=== PATIENT | male | born 1980 | race Caucasian/White ===

== ENCOUNTER 2018-02-09 13:14 | Emergency (ER) | payer OTHER ==
--- NOTE | 2018-02-09 13:41 | ERPHSYRPT ---
- History of Present Illness Time Seen by Provider: 02/09/18 13:29 Source: patient, EMS Exam Limitations: no limitations Patient Subjective Stated Complaint: Pt states "I was working with [employer]ers and I remember them wanting to take my blood pressure then the next thing I remember I am in an ambulance.". Medics states "He was initially in and out of concsiousness when I got there and his pupils were pinpoint. I gave 2 mg narcan and he immediately woke up and was very angry and combative." Triage Nursing Assessment: Pt alert and oriented X 3, skin pwd. Pt yawning frequently, able to speak in clear full sentences. PT has some sinus congestion. No apparent respiratory distress. PT has equal strength in all extremeties bilat. Physician History: The patient is a 38-year-old male brought in by ambulance from the [facility] system. 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 The ambulance was called because the patient's blood pressure was approximately 280/130 and it was believed he was in a crisis. The patient states that he was slightly dizzy at that time. When the ambulance arrived EMS tells me that he was going "in and out of consciousness". His blood glucose by EMS was 86. EMS states his pupils were pinpoint so there next item to do per protocol was to give 2 mg of Narcan. EMS states that he "woke up immediately". The patient states he did not know that he was given Narcan. The patient freely admits that he takes methadone and oxycodone for bilateral leg pain. The patient's past medical history is significant for hypertension, chronic leg pain, "thick blood", and cholecystectomy. Pt does not smoke or drink alcohol. Timing/Duration: today Severity: moderate Modifying Factors: Improves With: nothing Associated Symptoms: other (dizziness) Allergies/Adverse Reactions: No Known Drug Allergies Allergy (Unverified 02/09/18 13:24) Home Medications: ALPRAZolam [Alprazolam] 1 tab PO DAILY 02/09/18 [History] Carvedilol 25 mg PO DAILY 02/09/18 [History] Hydrochlorothiazide 25 mg [hydroDIURIL 25 MG] 25 mg PO DAILY 02/09/18 [ History] Methadone HCl 5 mg PO DAILY 02/09/18 [History] Oxycodone HCl 5 mg PO DAILY 02/09/18 [History] Rivaroxaban [Xarelto] 20 mg PO DAILY 02/09/18 [History] predniSONE [Prednisone] 1 tab PO DAILY 02/09/18 [History] Hx Tetanus, Diphtheria Vaccination/Date Given: No Hx Influenza Vaccination/Date Given: Yes Hx Pneumococcal Vaccination/Date Given: No Immunizations Up to Date: Yes - Review of Systems Constitutional: No Fever, No Chills Eyes: No Symptoms Ears, Nose, & Throat: No Symptoms Respiratory: No Cough, No Dyspnea Cardiac: No Chest Pain, No Edema, No Syncope Abdominal/Gastrointestinal: No Abdominal Pain, No Nausea, No Vomiting, No Diarrhea Genitourinary Symptoms: No Dysuria Musculoskeletal: No Back Pain, No Neck Pain Skin: No Rash Neurological: Dizziness Psychological: No Symptoms Endocrine: No Symptoms Hematologic/Lymphatic: No Symptoms Immunological/Allergic: No Symptoms All Other Systems: Reviewed and Negative - Past Medical History Pertinent Past Medical History: Yes Neurological History: No Pertinent History ENT History: No Pertinent History Cardiac History: Hypertension Respiratory History: No Pertinent History Endocrine Medical History: No Pertinent History Musculoskeletal History: No Pertinent History GI Medical History: No Pertinent History History: No Pertinent History Psycho-Social History: No Pertinent History Male Reproductive Disorders: No Pertinent History Other Medical History: oriental orthodox satish syndrome - Past Surgical History Past Surgical History: Yes Neuro Surgical History: No Pertinent History Cardiac: No Pertinent History Respiratory: No Pertinent History Gastrointestinal: Cholecystectomy Genitourinary: No Pertinent History Musculoskeletal: No Pertinent History Male Surgical History: No Pertinent History - Social History Smoking Status: Former smoker Exposure to second hand smoke: Yes Drug Use: none Patient Lives Alone: No - Nursing Vital Signs Nursing Vital Signs: Initial Vital Signs Temperature 98.0 F 02/09/18 13:15 Pulse Rate 89 02/09/18 13:15 Respiratory Rate 18 02/09/18 13:15 Blood Pressure 184/127 02/09/18 13:15 O2 Sat by Pulse Oximetry 98 02/09/18 13:15 Pain Scale Pain Intensity 0 - Physical Exam General Appearance: lethargy (mildly lethargic upon arrival.) Eye Exam: PERRL/EOMI Ears, Nose, Throat Exam: normal ENT inspection, TMs normal, pharynx normal, moist mucous membranes Neck Exam: normal inspection, non-tender, supple, full range of motion Respiratory Exam: normal breath sounds, lungs clear, No respiratory distress Cardiovascular Exam: regular rate/rhythm, normal heart sounds, normal peripheral pulses Gastrointestinal/Abdomen Exam: soft, normal bowel sounds, No tenderness, No mass Rectal Exam: not done Back Exam: normal inspection, normal range of motion, No CVA tenderness, No vertebral tenderness Extremity Exam: normal inspection, normal range of motion, pelvis stable Neurologic Exam: alert, oriented x 3, cooperative, normal mood/affect, nml cerebellar function, nml station & gait, sensation nml, No motor deficits Skin Exam: normal color, warm, dry, No rash Lymphatic Exam: No adenopathy SpO2 Interpretation: normal SpO2: 98 Oxygen Delivery: Room Air - Course EKG Interpreted by Me: RATE, Sinus Rhythm, NORMAL AXIS, NORMAL INTERVALS, NORMAL QRS, NORMAL ST-T - Radiology Exams Chest X-ray Interpretation: Reviewed by me, Teleradiologist Report (per Dr Mayfield), Negative - CT Exams Head CT Interpretation: Negative, Tele-radiologist Report (per Dr Mayfield), No/ Intracranial Hemorrhag Ordered Tests: Active Orders 24 hr Category Date Time Status Clean Catch Urine Specimen STAT Care 02/09/18 13:49 Active EKG-ER Only STAT Care 02/09/18 13:49 Active IV Insertion STAT Care 02/09/18 13:49 Active CHEST 2 VIEWS (PA AND LAT) Stat Exams 02/09/18 13:49 Completed HEAD WITHOUT CONTRAST [CT] Stat Exams 02/09/18 13:50 Completed CBC W DIFF Stat Lab 02/09/18 14:05 Completed CMP Stat Lab 02/09/18 14:05 Completed CULTURE,URINE Stat Lab 02/09/18 14:25 Received ETHYL ALCOHOL Stat Lab 02/09/18 14:05 Completed LIPASE Stat Lab 02/09/18 14:05 Completed Lactic Acid Stat Lab 02/09/18 14:20 Completed Manual Differential NC Stat Lab 02/09/18 14:05 Completed TROPONIN Q3H Lab 02/09/18 14:05 Completed TROPONIN Q3H Lab 02/09/18 17:00 Ordered TROPONIN Q3H Lab 02/09/18 20:00 Ordered TROPONIN Q3H Lab 02/09/18 23:00 Ordered TROPONIN Q3H Lab 02/10/18 02:00 Ordered UA W/ MICROSCOPIC Stat Lab 02/09/18 14:25 Completed Urine Triage Profile Stat Lab 02/09/18 14:11 Completed Medication Summary Discontinued Medications Generic Name Dose Route Start Last Admin Trade Name Roseanne PRN Reason Stop Dose Admin Sodium Chloride 1,000 mls @ 999 mls/hr 02/09/18 13:49 02/09/18 14:05 Sodium Chloride 0.9% 1000 Ml IV 02/09/18 14:49 999 mls/hr .Q1H1M STA Administration Sodium Chloride Confirm 02/09/18 14:01 Sodium Chloride 0.9% 1000 Ml Administered 02/09/18 14:02 Dose 1,000 mls @ ud .ROUTE .STK-MED ONE Labetalol HCl 20 mg 02/09/18 13:51 02/09/18 14:05 Trandate 20 Mg/5 Ml Syringe IV 02/09/18 13:52 20 mg STAT ONE Administration Labetalol HCl Confirm 02/09/18 14:01 Trandate 100 Mg/20 Ml Mdv For Drip Administered 02/09/18 14:02 Dose 100 mg IV .STK-MED ONE Lab/Rad Data: Laboratory Result Diagrams 02/09/18 14:05 02/09/18 14:05 Laboratory Results 02/09/18 02/09/18 02/09/18 Range/Units 14:25 14:20 14:11 WBC (4.0-10.5) K/mm3 RBC (4.1-5.6) M/mm3 Hgb (12.5-18.0) gm/dl Hct (42-50) % MCV (78-100) fl MCH (26-32) pg MCHC (32-36) g/dl RDW (11.5-14.0) % Plt Count (150-450) K/mm3 MPV (6-9.5) fl Segmented Neutrophils (36.-66.) % Band Neutrophils (0.0-2.0) % Lymphocytes (Manual) (24-44) % Monocytes (Manual) (0.0-12.0) % Eosinophils (Manual) (0.00-3.0) % Platelet Estimate (NORMAL) RBC Morphology Basophilic Stippling Sodium (137-145) mmol/L Potassium (3.5-5.1) mmol/L Chloride (98-107) mmol/L Carbon Dioxide (22-30) mmol/L Anion Gap (5-15) MEQ/L BUN (9-20) mg/dL Creatinine (0.66-1.25) mg/dL Estimated GFR ML/MIN Glucose (74-106) mg/dL Lactic Acid 1.6 (0.4-2.0) Calcium (8.4-10.2) mg/dL Total Bilirubin (0.2-1.3) mg/dL AST (17-59) U/L ALT (0-50) U/L Alkaline Phosphatase (38-126) U/L Troponin I (0.000-0.034) ng/mL Serum Total Protein (6.3-8.2) g/dL Albumin (3.5-5.0) g/dL Lipase (23-300) U/L Ur Collection Type CLEAN CATCH Urine Color YELLOW (YELLOW) Urine Appearance CLEAR (CLEAR) Urine pH 6.0 (5-6) Ur Specific [place] 1.020 (1.005-1.025) Urine Protein 30 (Negative) Urine Ketones NEGATIVE (NEGATIVE) Urine Blood 50 (0-5) Luan/ul Urine Nitrite NEGATIVE (NEGATIVE) Urine Bilirubin NEGATIVE (NEGATIVE) Urine Urobilinogen NORMAL (0-1) mg/dL Ur Leukocyte Esterase NEGATIVE (NEGATIVE) Urine Microscopic RBC 2-5 (0-2) /HPF Urine Microscopic WBC 0-2 (0-5) /HPF Ur Epithelial Cells RARE (FEW) /HPF Urine Bacteria FEW (NEGATIVE) /HPF Urine Culture Reflexed YES (NO) Urine Glucose NEGATIVE (NEGATIVE) mg/dL Urine Opiates Level POSITIVE (NEGATIVE) Ur Methadone POSITIVE (NEGATIVE) Urine Barbiturates NEGATIVE (NEGATIVE) Ur Phencyclidine (PCP) NEGATIVE (NEGATIVE) Urine Amphetamine NEGATIVE (NEGATIVE) U Benzodiazepine Level POSITIVE (NEGATIVE) Urine Cocaine NEGATIVE (NEGATIVE) Urine Marijuana (THC) NEGATIVE (NEGATIVE) Ethyl Alcohol (0-10) mg/dL Specimen Received 02/09/18 [id number] 02/09/18 02/09/18 02/09/18 Range/Units 14:05 14:05 14:05 WBC (4.0-10.5) K/mm3 RBC (4.1-5.6) M/mm3 Hgb (12.5-18.0) gm/dl Hct (42-50) % MCV (78-100) fl MCH (26-32) pg MCHC (32-36) g/dl RDW (11.5-14.0) % Plt Count (150-450) K/mm3 MPV (6-9.5) fl Segmented Neutrophils (36.-66.) % Band Neutrophils (0.0-2.0) % Lymphocytes (Manual) (24-44) % Monocytes (Manual) (0.0-12.0) % Eosinophils (Manual) (0.00-3.0) % Platelet Estimate (NORMAL) RBC Morphology Basophilic Stippling Sodium 144 (137-145) mmol/L Potassium 4.1 (3.5-5.1) mmol/L Chloride 106 (98-107) mmol/L Carbon Dioxide 27 (22-30) mmol/L Anion Gap 14.7 (5-15) MEQ/L BUN 16 (9-20) mg/dL Creatinine 1.16 (0.66-1.25) mg/dL Estimated GFR > 60.0 ML/MIN Glucose 117 H (74-106) mg/dL Lactic Acid (0.4-2.0) Calcium 9.0 (8.4-10.2) mg/dL Total Bilirubin 0.30 (0.2-1.3) mg/dL AST 44 (17-59) U/L ALT 32 (0-50) U/L Alkaline Phosphatase 86 (38-126) U/L Troponin I 0.024 (0.000-0.034) ng/mL Serum Total Protein 6.9 (6.3-8.2) g/dL Albumin 4.1 (3.5-5.0) g/dL Lipase 68 (23-300) U/L Ur Collection Type Urine Color (YELLOW) Urine Appearance (CLEAR) Urine pH (5-6) Ur Specific [place] (1.005-1.025) Urine Protein (Negative) Urine Ketones (NEGATIVE) Urine Blood (0-5) Luan/ul Urine Nitrite (NEGATIVE) Urine Bilirubin (NEGATIVE) Urine Urobilinogen (0-1) mg/dL Ur Leukocyte Esterase (NEGATIVE) Urine Microscopic RBC (0-2) /HPF Urine Microscopic WBC (0-5) /HPF Ur Epithelial Cells (FEW) /HPF Urine Bacteria (NEGATIVE) /HPF Urine Culture Reflexed (NO) Urine Glucose (NEGATIVE) mg/dL Urine Opiates Level (NEGATIVE) Ur Methadone (NEGATIVE) Urine Barbiturates (NEGATIVE) Ur Phencyclidine (PCP) (NEGATIVE) Urine Amphetamine (NEGATIVE) U Benzodiazepine Level (NEGATIVE) Urine Cocaine (NEGATIVE) Urine Marijuana (THC) (NEGATIVE) Ethyl Alcohol < 10 (0-10) mg/dL Specimen Received 02/09/18 Range/Units 14:05 WBC 7.9 (4.0-10.5) K/mm3 RBC 4.51 (4.1-5.6) M/mm3 Hgb 13.1 (12.5-18.0) gm/dl Hct 40.6 L (42-50) % MCV 90.0 (78-100) fl MCH 29.0 (26-32) pg MCHC 32.3 (32-36) g/dl RDW 13.9 (11.5-14.0) % Plt Count 210 (150-450) K/mm3 MPV 9.7 H (6-9.5) fl Segmented Neutrophils 48 (36.-66.) % Band Neutrophils 1 (0.0-2.0) % Lymphocytes (Manual) 45 H (24-44) % Monocytes (Manual) 4 (0.0-12.0) % Eosinophils (Manual) 2 (0.00-3.0) % Platelet Estimate NORMAL (NORMAL) RBC Morphology ABNORMAL Basophilic Stippling 1+ Sodium (137-145) mmol/L Potassium (3.5-5.1) mmol/L Chloride (98-107) mmol/L Carbon Dioxide (22-30) mmol/L Anion Gap (5-15) MEQ/L BUN (9-20) mg/dL Creatinine (0.66-1.25) mg/dL Estimated GFR ML/MIN Glucose (74-106) mg/dL Lactic Acid (0.4-2.0) Calcium (8.4-10.2) mg/dL Total Bilirubin (0.2-1.3) mg/dL AST (17-59) U/L ALT (0-50) U/L Alkaline Phosphatase (38-126) U/L Troponin I (0.000-0.034) ng/mL Serum Total Protein (6.3-8.2) g/dL Albumin (3.5-5.0) g/dL Lipase (23-300) U/L Ur Collection Type Urine Color (YELLOW) Urine Appearance (CLEAR) Urine pH (5-6) Ur Specific [place] (1.005-1.025) Urine Protein (Negative) Urine Ketones (NEGATIVE) Urine Blood (0-5) Luan/ul Urine Nitrite (NEGATIVE) Urine Bilirubin (NEGATIVE) Urine Urobilinogen (0-1) mg/dL Ur Leukocyte Esterase (NEGATIVE) Urine Microscopic RBC (0-2) /HPF Urine Microscopic WBC (0-5) /HPF Ur Epithelial Cells (FEW) /HPF Urine Bacteria (NEGATIVE) /HPF Urine Culture Reflexed (NO) Urine Glucose (NEGATIVE) mg/dL Urine Opiates Level (NEGATIVE) Ur Methadone (NEGATIVE) Urine Barbiturates (NEGATIVE) Ur Phencyclidine (PCP) (NEGATIVE) Urine Amphetamine (NEGATIVE) U Benzodiazepine Level (NEGATIVE) Urine Cocaine (NEGATIVE) Urine Marijuana (THC) (NEGATIVE) Ethyl Alcohol (0-10) mg/dL Specimen Received - Progress Progress: improved Progress Note: 02/09/18 14:57 BP is now 140/93 after labetalol 20 mg IV. Counseled pt/family regarding: lab results, diagnosis, need for follow-up, rad results - Departure Time of Disposition: 16:12 Departure Disposition: Home Clinical Impression: HTN (hypertension) Condition: Stable Critical Care Time: No Additional Instructions: You had an episode of significantly elevated blood pressure today. You were given labetalol 20 mg and fluids by IV in the ER. Your blood pressure is now normal. Continued to stay well hydrated. Continue with your blood pressure medicines as prescribed. Your released to return to work without restrictions at this time. Follow-up next week with your primary medical doctor.
[2018-02-09] MEDS ORDERED: Sodium Chloride 0.9% 1000 ML 1,000 ML IV STA (13:49)
[2018-02-09] MEDS ORDERED: TRANDATE 20 MG/5 ML SYRINGE IV ONE (13:51)
[2018-02-09] MEDS ORDERED: Sodium Chloride 0.9% 1000 ML 1,000 ML ONE (14:01)
[2018-02-09] MEDS ORDERED: TRANDATE 100 MG/20 ML MDV FOR DRIP IV ONE (14:01)
[2018-02-09 14:07] LABS: Hematocrit 40.6 % (42-50); Hemoglobin 13.1 gm/dl (12.5-18.0); Mean Corpuscular Hgb Concent. 32.3 g/dl (32-36); Mean Platelet Volume 9.7 fl (6-9.5); Platelet Count 210 K/mm3 (150-450); Red Blood Count 4.51 M/mm3 (4.1-5.6); Red Cell Distribution Width 13.9 % (11.5-14.0); White Blood Count 7.9 K/mm3 (4.0-10.5)
[2018-02-09 14:30] LABS: ALBUMIN 4.1 g/dL (3.5-5.0); ALKALINE PHOSPHATASE 86 U/L (38-126); ANION GAP 14.7 MEQ/L (5-15); BLOOD UREA NITROGEN 16 mg/dL (9-20); CHLORIDE 106 mmol/L (98-107); Carbon Dioxide 27 mmol/L (22-30); Creatinine 1 1.16 mg/dL (0.66-1.25); Glucose 117 mg/dL (74-106); LIPASE 68 U/L (23-300); Potassium 4.1 mmol/L (3.5-5.1); SGOT/AST 44 U/L (17-59); SGPT/ALT 32 U/L (0-50); SODIUM 144 mmol/L (137-145); Total Protein 6.9 g/dL (6.3-8.2)
[2018-02-09 14:35] LABS: BAND 1 % (0.0-2.0); Basophilic Stippling 1+; Eosinophil 2 % (0.00-3.0); Lymphocytes 45 % (24-44); Monocyte 4 % (0.0-12.0); Neutrophils 48 % (36.-66.); Platelet Estimate NORMAL (NORMAL); Total Cells Counted 100
[2018-02-09 14:38] LABS: Appearance CLEAR (CLEAR); Bacteria FEW /HPF (NEGATIVE); Bilirubin NEGATIVE (NEGATIVE); Blood 50 Ery/ul (0-5); Epithelial Cells RARE /HPF (FEW); Glucose NEGATIVE (NEGATIVE); Ketones NEGATIVE (NEGATIVE); Leukocyte Esterase NEGATIVE (NEGATIVE); Nitrite NEGATIVE (NEGATIVE); Protein,Urine Dip 30 (Negative); Urobilinogen NORMAL mg/dL (0-1); WBC 0-2 /HPF (0-5)
[2018-02-09 14:47] LABS: Amphetamine,Urine NEGATIVE (NEGATIVE); Barbiturate,Urine NEGATIVE (NEGATIVE); Benzodiazepine,Urine POSITIVE (NEGATIVE); Cocaine,Urine NEGATIVE (NEGATIVE); Methadone,Urine POSITIVE (NEGATIVE); Opiate,Urine POSITIVE (NEGATIVE); PCP,Urine NEGATIVE (NEGATIVE); THC,Urine NEGATIVE (NEGATIVE)
--- NOTE | 2018-02-09 14:53 | XRAY ---
Indication: Short of breath. Elevated blood pressure. Comparison: None PA/lateral chest hyperinflated and clear. Heart and mediastinal structures within normal limits. Bony thorax intact. Impression: Nonacute hyperinflated chest.
--- NOTE | 2018-02-09 14:55 | XRAY ---
Indication: Headache and dizziness. Elevated blood pressure. Multiple contiguous axial images obtained through the head without contrast. Comparison: None Normal appearing brain parenchyma, ventricles, and bony calvarium. Visualized paranasal sinuses and mastoid air cells are clear. Impression: Normal CT head without contrast exam. CT DI 69.38
[2018-02-09 16:18] VITALS: O2SAT 98
[2018-02-09 16:28] VITALS: BP 113/76; PULSE 86
== END 2018-02-09 16:41 | disposition home or self-care (01) ==
LOC: ED 13:14
DX: I10 Essential (primary) hypertension (principal); R42 Dizziness and giddiness; Z79.899 Other long term (current) drug therapy
CPT/HCPCS: 36000; 36415; 70450; 71046; 80053; 80307; 81000; 83605; 83690; 84484; 85025; 87086; 93005; 96365; 96374; 99284; G0480